=== PATIENT | male | born 1945 | race Caucasian/White ===

== ENCOUNTER 2018-05-19 22:26 | Emergency (ER) | payer MEDICARE, BC ==
[2018-05-19] MEDS ORDERED: ONDANSETRON HCL IV 4 MG/2 ML VIAL IVP ONE (22:41)
[2018-05-19] MEDS ORDERED: FENTANYL PF 100MCG/2ML VIAL IVP ONE (22:41)
[2018-05-19] MEDS ORDERED: 0.9 % SODIUM CHLORIDE 1000ML 500 ML IV SCH (22:45)
--- NOTE | 2018-05-19 22:47 | Emergency Department Record ---
History of Present Illness - General Chief complaint: Flank Pain Stated complaint: RT FLANK PAIN/KIDNEY STONE Time Seen by Provider: 05/19/18 22:40 Source: Patient Mode of Arrival: Ambulatory Limitations: No limitations - History of Present Illness Initial comments: 73 yo male presents to ED for evaluation of right sided flank pain that began last night, improved throughout today however returned more intense this evening prompting visit to the ED. Patient reports similar symptoms several years ago related to kidney stones, denies fevers, chills, or recent illness. Patient reports that his pain radiates from the right flank to the RLQ abdomen, denies hematuria symptoms. Patient rates his pain symptoms at 8/10. Onset/Timin -: Minutes(s) Location: Right flank Radiation: RLQ Severity scale (1-10): 8 Quality: Stabbing Consistency: Constant, Getting worse Improves with: None Worsens with: None Reports: Denies other symptoms - Related Data Sexually active: No Previous Rx's Medication Instructions Recorded Hydrocodone/Acetaminophen [[place] 1 each PO Q6H PRN #9 tablet 05/19/18 5-325 Tablet] Tamsulosin HCl [Flomax] 0.4 mg PO DAILY #14 cap.er.24h 05/19/18 Allergies Allergy/AdvReac Type Severity Reaction Status Date / Time No Known Drug Allergies Allergy Unverified 12/08/15 14:43 Travel Screening - Travel/Exposure Within Last 30 Days Have you traveled within the last 30 days?: No Review of Systems Constitutional: Denies: Chills, Fever, Malaise, Night sweats Eyes: Denies: Eye discharge, Eye pain ENT: Denies: Congestion, Ear pain, Epistaxis Respiratory: Denies: Cough, Dyspnea Cardiovascular: Denies: Chest pain, Dyspnea on exertion Endocrine: Denies: Fatigue, Heat or cold intolerance Gastrointestinal: Reports: Abdominal pain. Denies: Nausea, Vomiting Genitourinary: Denies: Testicular pain, Testicular mass Musculoskeletal: Reports: Back pain. Denies: Arthralgia, Gout, Joint swelling Skin: Denies: Bruising, Change in color Neurological: Denies: Abnormal gait Psychiatric: Denies: Anxiety Hematological/Lymphatic: Denies: Anemia, Blood Clots Past Medical History - SOCIAL HISTORY Smoking Status: Never smoker Alcohol Use: None Drug Use: None - RESPIRATORY Hx Respiratory Disorders: No Comment:: decreased lung capacity due to ankylosing spondylosis - CARDIOVASCULAR Hx Cardio Disorders: Yes Hx Abnormal EKG: Yes Hx Irregular Heartbeat: Yes (a fib controlled with meds) - NEURO Hx Neuro Disorders: Yes Hx Dizziness: Yes (sometimes when getting up to fast) Hx Headaches: No - GI Hx GI Disorders: Yes Hx Reflux: Yes Hx Rectal Bleeding: Yes (occasionally) Hx Ulcer: Yes Hx of Polyps: Yes Comment:: gastric resection d/t ulcer - Hx Genitourinary Disorders: Yes Hx Kidney Stones: Yes (reoccuring sporadically) - ENDOCRINE Hx Endocrine Disorders: No - MUSCULOSKELETAL Hx Musculoskeletal Disorders: Yes Hx Arthritis: Yes (RA) Comment:: Ankylosing spondylitis - PSYCH Hx Psych Problems: No - HEMATOLOGY/ONCOLOGY Hx Hematology/Oncology Disorders: Yes Hx Anemia: Yes (takes iron) Hx Bruising: Yes (briuises easily) Hx Blood Transfusions: Yes Hx Blood Transfusion Reaction: No Family Medical History Any Significant Family History?: Yes Hx Diabetes: Mother Physical Exam - General General Appearance: Alert, Oriented x3, Cooperative, Moderate distress (appears uncomfortable due to his pain symptoms) Limitations: No limitations - Head Head exam: Atraumatic, Normocephalic, Normal inspection Head exam detail: negative: Abrasion, Contusion, Joseph's sign, General tenderness, Hematoma, Laceration - Eye Eye exam: Normal appearance. negative: Conjunctival injection, Periorbital swelling, Periorbital tenderness, Scleral icterus - ENT Ear exam: negative: Auricular hematoma, Auricular trauma Nasal Exam: negative: Active bleeding, Discharge, Dried blood, Foreign body Mouth exam: negative: Drooling, Laceration, Muffled voice, Tongue elevation - Neck Neck exam: Normal inspection. negative: Meningismus, Tenderness - Respiratory Respiratory exam: Normal lung sounds bilaterally. negative: Rales, Respiratory distress, Rhonchi, Stridor - Cardiovascular Cardiovascular Exam: Regular rate, Normal rhythm, Normal heart sounds - GI/Abdominal GI/Abdominal exam: Soft. negative: Rebound, Rigid, Tenderness - Rectal Rectal exam: Deferred - exam: Deferred - Extremities Extremities exam: Normal inspection. negative: Calf tenderness, Pedal edema, Tenderness - Back Back exam: Reports: CVA tenderness (R). Denies: CVA tenderness (L) - Neurological Neurological exam: Alert, Normal gait, Oriented X3 - Psychiatric Psychiatric exam: Normal affect, Normal mood - Skin Skin exam: Normal color. negative: Abrasion Type of lesion: negative: abrasion Course Vital Signs 05/19/18 22:35 Temperature 97.8 F Pulse Rate [ 57 L Pulse Ox Probe] Respiratory 16 Rate Blood Pressure 179/79 [Left Arm] Pulse Ox 98 - Reevaluation(s) Reevaluation #1: 05/19/18 23:13 Laboratory studies were reviewed: UA: RBCs: TNTC WBCs: 0-2 Epithelial: 0-2 Bacteria: Few Labs are otherwise grossly unremarkable for an acute process. No evidence for infection in review of the patient's UA. Reevaluation #2: 05/19/18 23:21 Patient was reassessed and updated on all results thus far, reports that his pain symptoms are greatly improved (11/29 currently). Reevaluation #3: 05/19/18 23:31 CT Abdomen/Pelvis: 4 mm calculus proximal uretero-pelvic junction with mild fullness of the right renal collecting system. Patient was updated on all results, reports that he is resting more comfortably. Will administer Toradol and Flomax prior to discharge. Patient appears stable for discharge at this time. Medical Decision Making - Lab Data Result diagrams: 05/19/18 22:40 05/19/18 22:40 Disposition Disposition: Discharge Clinical Impression: Kidney stone on right side Disposition: Home, Self-Care Condition: (2) Stable Instructions: Kidney Stones (ED) Additional Instructions: Return to ED if your symptoms worsen or if you have any concerns. Flomax, Thorndike as directed. Follow-up with your family doctor in 1-3 days as directed. Prescriptions: Hydrocodone/Acetaminophen [[place] 5-325 Tablet] 1 each PO Q6H PRN #9 tablet PRN Reason: Pain - Moderate (5-7) Tamsulosin HCl [Flomax] 0.4 mg PO DAILY #14 cap.er.24h Forms: Patient Portal Access Time of Disposition: 23:42 Quality - Quality Measures Quality Measures: N/A - Blood Pressure Screening Does Patient Have Any of the Following: No Blood Pressure Classification: Hypertensive Reading Systolic Measurement: 179 Diastolic Measurement: 79 Screening for High Blood Pressure: < First Hypertensive BP, F/U Documented > [ G8950] First Hypertensive Follow-up Interventions: Referral to alternative/primary care provider.
[2018-05-19 22:50] LABS: BASO % 0.5 % (0-6); EOS % 3.9 % (0-6); GRAN % 58.6 % (47-80); HEMATOCRIT 42.5 % (42.0-52.0); HEMOGLOBIN 13.9 gm/dl (14.0-18.0); LYMPH % 24.3 % (16-45); MEAN CELL VOLUME 96.8 fl (81-97); MEAN CORPUSCULAR HGB CONC 32.7 g/dl (32-36); MEAN PLATELET VOLUME 9.9 fl (7.4-10.4); MONO % 12.7 % (0-9); PLATELET COUNT 193 K/uL (130-400); RED BLOOD COUNT 4.39 M/uL (4.40-5.70); RED CELL DISTRIBUTION WIDTH 12.8 % (11.5-14.5); WHITE BLOOD COUNT W/O DIFF 4.4 K/uL (4.2-12.2)
[2018-05-19 22:51] LABS: MEAN CORPUSCULAR HEMOGLOBIN 31.6 pg (27-33); URINE APPEARANCE CLOUDY; URINE BILIRUBIN NEGATIVE (NEGATIVE); URINE BLOOD LARGE (NEGATIVE); URINE COLOR YELLOW; URINE GLUCOSE (UA) NEGATIVE (NEGATIVE); URINE KETONE NEGATIVE (NEGATIVE); URINE LEUKOCYTE ESTERASE NEGATIVE (NEGATIVE); URINE NITRITE NEGATIVE (NEGATIVE); URINE UROBILINOGEN 0.2 E.U./dL (0.20 - 1.00)
[2018-05-19 23:00] LABS: BLOOD UREA NITROGEN 10 mg/dL (8-23); CREATININE 0.9 mg/dL (0.7-1.2); EST GLOMERULAR FILTRATION RATE > 60 mL/min
[2018-05-19 23:01] LABS: URINE EPITHELIAL CELLS 0 - 2 (FEW); URINE WBC 0 - 2 (0-2/hpf)
[2018-05-19 23:02] LABS: URINE BACTERIA FEW
[2018-05-19 23:03] LABS: GLUCOSE,RANDOM 100 mg/dL (74-109)
[2018-05-19 23:05] LABS: ALB/GLOB RATIO 1.5 (1.1-1.8); ALBUMIN 4.2 g/dL (4.0-5.0); ALKALINE PHOSPHATASE 56 U/L (40-129); ALT/SGPT 15 U/L (<41); AST/SGOT 26 U/L (10.0-50.0)
[2018-05-19] MEDS ORDERED: KETOROLAC 30 MG/ML VIAL IVP ONE (23:31)
[2018-05-19] MEDS ORDERED: TAMSULOSIN HCL 0.4 MG CAP.ER.24H PO ONE (23:31)
[2018-05-20] MEDS ORDERED: HYDROCODONE/APAP 5/325MG TABLET PO ONE (00:03)
== END 2018-05-20 00:14 | disposition home or self-care (01) ==
LOC: ER 22:26
DX: N20.0 Calculus of kidney (principal); I48.91 Unspecified atrial fibrillation; Z87.442 Personal history of urinary calculi
CPT/HCPCS: 99284 ×2; 96374; 96375; 96361; 85025; 80053; 81001; 74176; J1885; J2405; J3010; J7030

== ENCOUNTER 2018-05-21 08:35 | Emergency (ER) | payer MEDICARE, BC ==
--- NOTE | 2018-05-21 08:51 | Emergency Department Record ---
History of Present Illness - General Chief Complaint: Abdominal Pain Stated Complaint: ABD PAIN,VOMITING Time Seen by Provider: 05/21/18 08:44 Source: Patient Mode of Arrival: Ambulatory Limitations: No limitations - History of Present Illness Initial Comments: 73 yo male presents with continued right flank pain. He was diagnosed with a 4mm right UPJ stone in the ED. The pain has returned, he has associated nausea and vomiting. No diarrhea. No fever. Years ago he reports having lithotripsy. He does not recall the urologist and does not currently see a urologist. No retention. MD Complaint: Abdominal pain, Flank pain -: Days(s) (3) Location: R Flank Radiation: R flank Migration to: R Flank Severity: Severe Quality: Aching Consistency: Constant Improves With: Nothing Worsens With: Nothing Associated Symptoms: Anorexia, Nausea, Vomiting - Related Data Previous Rx's Medication Instructions Recorded Hydrocodone/Acetaminophen [[place] 1 each PO Q6H PRN #9 tablet 05/19/18 5-325 Tablet] Tamsulosin HCl [Flomax] 0.4 mg PO DAILY #14 cap.er.24h 05/19/18 Ondansetron [Zofran Odt] 4 mg PO Q8H #20 tab.rapdis 05/21/18 Allergies Allergy/AdvReac Type Severity Reaction Status Date / Time No Known Drug Allergies Allergy Verified 05/21/18 08:46 Review of Systems Constitutional: Denies: Chills, Fever, Malaise Eyes: Denies: Eye discharge, Vision change ENT: Denies: Congestion, Throat pain Respiratory: Denies: Cough Cardiovascular: Denies: Chest pain, Syncope Endocrine: Denies: Fatigue Gastrointestinal: Reports: As per HPI, Abdominal pain, Nausea, Vomiting. Denies : Diarrhea, Hematemesis, Hematochezia Genitourinary: Denies: Dysuria, Frequency, Hematuria, Retention Musculoskeletal: Reports: Back pain. Denies: Arthralgia Skin: Denies: Bruising, Change in color, Rash Neurological: Denies: Confusion, Headache, Numbness, Paresthesias Psychiatric: Denies: Anxiety Hematological/Lymphatic: Denies: Easy bleeding, Easy bruising Past Medical History - SOCIAL HISTORY Smoking Status: Never smoker Drug Use: None - RESPIRATORY Hx Respiratory Disorders: No Comment:: decreased lung capacity due to ankylosing spondylosis - CARDIOVASCULAR Hx Cardio Disorders: Yes Hx Abnormal EKG: Yes Hx Irregular Heartbeat: Yes (a fib controlled with meds) - NEURO Hx Neuro Disorders: Yes Hx Dizziness: Yes (sometimes when getting up to fast) Hx Headaches: No - GI Hx GI Disorders: Yes Hx Reflux: Yes Hx Rectal Bleeding: Yes (occasionally) Hx Ulcer: Yes Hx of Polyps: Yes Comment:: gastric resection d/t ulcer - Hx Genitourinary Disorders: Yes Hx Kidney Stones: Yes (reoccuring sporadically) - ENDOCRINE Hx Endocrine Disorders: No - MUSCULOSKELETAL Hx Musculoskeletal Disorders: Yes Hx Arthritis: Yes (RA) Comment:: Ankylosing spondylitis - PSYCH Hx Psych Problems: No - HEMATOLOGY/ONCOLOGY Hx Hematology/Oncology Disorders: Yes Hx Anemia: Yes (takes iron) Hx Bruising: Yes (briuises easily) Hx Blood Transfusions: Yes Hx Blood Transfusion Reaction: No Family Medical History Hx Diabetes: Mother Physical Exam - General General Appearance: Alert, Oriented x3, Cooperative, No acute distress Limitations: No limitations - Head Head exam: Normal inspection - Eye Eye exam: Normal appearance - ENT ENT exam: Normal exam Ear exam: Normal external inspection Nasal Exam: Normal inspection Mouth exam: Normal external inspection - Neck Neck exam: Normal inspection, Full ROM. negative: Tenderness - Respiratory Respiratory exam: Normal lung sounds bilaterally. negative: Respiratory distress - Cardiovascular Cardiovascular Exam: Regular rate, Normal rhythm, Normal heart sounds - GI/Abdominal GI/Abdominal exam: Soft, Normal bowel sounds. negative: Distended, Guarding, Rebound, Rigid, Tenderness - Rectal Rectal exam: Deferred - exam: Deferred - Extremities Extremities exam: Normal inspection, Full ROM, Normal capillary refill. negative: Tenderness - Back Back exam: Reports: Normal inspection, Full ROM. Denies: Muscle spasm, Rash noted, Tenderness - Neurological Neurological exam: Alert, Normal gait, Oriented X3 - Psychiatric Psychiatric exam: Normal affect, Normal mood. negative: Agitated, Anxious - Skin Skin exam: Dry, Intact, Normal color, Warm Course - Reevaluation(s) Reevaluation #1: The UA and CBC were reviewed No acute findings. NO signs of acute infection in the urine 05/21/18 09:23 05/21/18 09:31 Normal Renal Function with normal GFR Toradol 15mg ordered as well 05/21/18 10:22 The pain is well controlled at this time I SW Dr Henao of Urology and discussed the normal labs, UA, and 3-4 mm stone. The patient can follow up on Friday in his office. He was referred to the specialty clinic as well If worse he was instructed to go to [facility] ED for evaluation He was given a copy of the tests and CT's 05/21/18 10:33 Medical Decision Making - Lab Data Result diagrams: 05/21/18 08:50 05/21/18 08:50 Disposition Disposition: Discharge Clinical Impression: Renal colic on right side Disposition: Home, Self-Care Condition: (1) Good Instructions: Renal Colic (ED) Additional Instructions: Take the prescriptions provided today as directed. Call to schedule a Friday appointment for a recheck with Dr Mackey Go to the [facility] ED if your symptoms worsen or if you have any new concerns. Dr Henao's office number is [phone] in [place] Prescriptions: Ondansetron [Zofran Odt] 4 mg PO Q8H #20 tab.rapdis Referrals: [facility] [Provider Group] LEXIS MACKEY M.D. [MEDICAL DOCTOR] - Forms: Patient Portal Access Time of Disposition: 10:34 Quality - Quality Measures Quality Measures: N/A - Blood Pressure Screening Does Patient Have Any of the Following: No Blood Pressure Classification: Pre-Hypertensive BP Reading Systolic Measurement: 135 Diastolic Measurement: 67 Screening for High Blood Pressure: < Pre-Hypertensive BP, F/U Documented > [ G8950] Pre-Hypertensive Follow-up Interventions: Referral to alternative/primary care provider.
[2018-05-21] MEDS: ONDANSETRON HCL IV 4 MG/2 ML VIAL IVP ONE (09:03)
[2018-05-21] MEDS: SODIUM CHLORIDE 0.9% 500 ML IV ONE (09:03)
[2018-05-21] MEDS: ACETAMINOPHEN 1,000 MG/100 ML BTL IVPB ONE (09:03)
[2018-05-21 09:04] LABS: HEMATOCRIT 41.5 % (42.0-52.0); HEMOGLOBIN 13.6 gm/dl (14.0-18.0); MEAN CELL VOLUME 96.3 fl (81-97); MEAN CORPUSCULAR HGB CONC 32.8 g/dl (32-36); MEAN PLATELET VOLUME 9.6 fl (7.4-10.4); PLATELET COUNT 159 K/uL (130-400); RED BLOOD COUNT 4.31 M/uL (4.40-5.70); RED CELL DISTRIBUTION WIDTH 12.3 % (11.5-14.5); URINE APPEARANCE CLOUDY; URINE BILIRUBIN NEGATIVE (NEGATIVE); URINE BLOOD LARGE (NEGATIVE); URINE COLOR YELLOW; URINE GLUCOSE (UA) NEGATIVE (NEGATIVE); URINE KETONE 15 mg/dL (NEGATIVE); URINE LEUKOCYTE ESTERASE NEGATIVE (NEGATIVE); URINE NITRITE NEGATIVE (NEGATIVE); URINE UROBILINOGEN 0.2 E.U./dL (0.20 - 1.00); WHITE BLOOD COUNT W/O DIFF 8.3 K/uL (4.2-12.2)
[2018-05-21 09:11] LABS: URINE AMORPHOUS SEDIMENT 3+; URINE BACTERIA NONE SEEN; URINE EPITHELIAL CELLS NONE SEEN (FEW); URINE RBC >50 (NONE SEEN); URINE WBC NONE SEEN (0-2/hpf)
[2018-05-21 09:14] LABS: BLOOD UREA NITROGEN 8 mg/dL (8-23); CREATININE 0.9 mg/dL (0.7-1.2); EST GLOMERULAR FILTRATION RATE > 60 mL/min; MEAN CORPUSCULAR HEMOGLOBIN 31.5 pg (27-33)
[2018-05-21 09:16] LABS: PLATELET ESTIMATE NORMAL (NORMAL)
[2018-05-21 09:17] LABS: GLUCOSE,RANDOM 124 mg/dL (74-109)
[2018-05-21] MEDS: KETOROLAC 30 MG/ML VIAL IVP ONE (09:37)
== END 2018-05-21 11:02 | disposition home or self-care (01) ==
LOC: ER 08:35
DX: N20.0 Calculus of kidney (principal); R11.2 Nausea with vomiting, unspecified; I48.91 Unspecified atrial fibrillation; Z87.442 Personal history of urinary calculi
CPT/HCPCS: 74018; 80048; 81001; 85027; 96361; 96365; 96375; 99284; J1885; J2405

== ENCOUNTER → 2018-06-04 | Day surgery (SDC) | payer MEDICARE, BC ==
[~2018-06-04] MED LIST: ACETAMINOPHEN 1,000 MG/100 ML BTL IV ONE; BUPIVACAINE 0.25% W/EPI MPF 30ML VIAL IVP ONE; FENTANYL PF 100MCG/2ML VIAL IV ONE; HYDROCODONE/APAP 5/325MG TABLET PO ONE; KETOROLAC 30 MG/ML VIAL IVP ONE; LIDOCAINE 2% MDV (20MG/ML) 20ML VIAL IV ONE; MIDAZOLAM HCL 2MG/2ML VIAL IV ONE; ONDANSETRON HCL IV 4 MG/2 ML VIAL IVP ONE; PROPOFOL 10 MG/ML VIAL IV ONE; SEVOFLURANE 250 ML INH ONE
--- NOTE | 2018-06-10 09:01 | Operative Note ---
DATE OF SURGERY: 06/04/2018 Surgeon: Malvin López DO PREOPERATIVE DIAGNOSES: 1. Torn medial meniscus of the right knee. 2. Chondromalacia of the right knee. 3. Chondrocalcinosis, right knee. POSTOPERATIVE DIAGNOSES: 1. Torn medial meniscus, right knee. 2. Chondromalacia of the patellofemoral articulation, medial tibial plateau, medial femoral condyle, and lateral femoral condyle, right knee. 3. Chondrocalcinosis, right knee. OPERATION: 1. Arthroscopic partial medial meniscectomy, right knee. 2. Arthroscopic chondroplasty medial tibial plateau, right knee. DESCRIPTION OF PROCEDURE: This 73-year-old male was taken to the operating room and placed in the supine position on the operating room table where general anesthesia was induced. The right lower extremity was then elevated, exsanguinated, and the tourniquet inflated to 300 mmHg. Arthroscopic knee plummer applied. Right knee prepped with Hibiclens and draped in the usual sterile fashion. An inferolateral portal was established for the 4 mm arthroscope, and initial evaluation of the joint demonstrated grade 2 chondromalacia of the patella and trochlea of the right knee. An inferomedial portal was established and probing did not reveal any gross instability of the cartilage, only superficial flaking of the cartilage was seen and it was not further disturbed. Loose cartilaginous bodies were present in the gutters and these were suctioned from the joint. The medial compartment was entered and severe grade 2 chondromalacia of the medial tibial plateau was present. A similar lesion on the posterior aspect of the medial femoral condyle was also evident except that it did not show instability. The only instability was seen on the medial tibial plateau and the rotating shaver was used to smooth the damaged surface of cartilage. The patient also demonstrated a severe complex tear of the medial meniscus with a very large flap tear. Marked chondrocalcinosis was noted on the medial meniscus. Utilizing the basket forceps and rotating shaver, we resected unstable fragments of the medial meniscus. Some of it could not be reached well from the medial portal. Therefore, we switched portals to have better exposure to the tear. This tear extended from the posterior root all the way around to approximately the 4-o'clock position. The root actually was not involved in the tear per se. The meniscus was then re-probed and confirmed to be stable. The intracondylar notch was examined and found to be normal. The lateral compartment was entered, and the patient demonstrated very small area of chondromalacia on the posterior aspect of the lateral femoral condyle. This lesion was definitely less than a centimeter. Early grade 2 change. Meniscus did not demonstrate any pathology other than chondrocalcinosis on the posterior horn. No tears were identified and the tibial plateau was normal. The joint was copiously irrigated and suctioned. The instruments were removed. The portals infiltrated with 0.25% Marcaine with epinephrine. Sterile dressings applied. Tourniquet and knee plummer released. The patient taken to the recovery room in satisfactory condition. GROSS PATHOLOGY: Grade 3 chondromalacia of the medial femoral condyle. Grade 3 changes of the medial tibial plateau and grade 2 changes noted on the medial femoral condyle. Grade 2 changes also noted at the patellofemoral articulation and lateral femoral condyle as described above. A severe complex tear of the posterior horn and body of the medial meniscus was present with chondrocalcinosis also being identified. CC: DO NICOLLE Persaud
== END | disposition home or self-care (01) ==
LOC: SUR 08:20
PROVIDERS: ATTEND Orthopaedic Surgery
DX: M11.261 Other chondrocalcinosis, right knee (principal); M22.41 Chondromalacia patellae, right knee; M94.261 Chondromalacia, right knee; I48.91 Unspecified atrial fibrillation; M06.9 Rheumatoid arthritis, unspecified; M45.9 Ankylosing spondylitis of unspecified sites in spine
CPT/HCPCS: 29881; 01400; J1885; J2405; J3010